=== PATIENT | female | born 1955 | race Caucasian/White ===

== ENCOUNTER 2018-05-27 07:30 | Inpatient (IN) ==
[~2018-05-27 07:30] MED LIST: ACETAMINOPHEN 500 MG TABLET PO ONE; DEXAMETHASONE 4 MG/ML INJECTION IVP ONE; FAMOTIDINE PB 20 MG/50 ML BAG IV ONE; LIDOCAINE 1% (10mg/ml) 2mL INJ PF SDV ID ONE; MELOXICAM 15 MG TABLET PO ONE; METOCLOPRAMIDE 10mg/2ml INJECTION IVP ONE; ONDANSETRON 4 MG/2 ML INJECTION IVP ONE; TRANEXAMIC ACID 1,000 MG in NS 100 ML IV ONE
[2018-05-27] MEDS ORDERED: EPINEPHrine PF 0.25 MG, BUPIVACAINE 0.25% PF 30 ML, KETOROLAC INJ 60 MG in NS 30 ML OPSITE ONE (08:00)
[2018-05-27 10:54] VITALS: BMI 29.0
[2018-05-27] MEDS ORDERED: CEFAZOLIN 1 G INJECTION IVP ONE (10:54)
[2018-05-27] MEDS ORDERED: NS 1,000 ML IV SCH (11:45)
[2018-05-27] MEDS: NOZIN NASAL SWAB NAS SCH ×4 (12:27→22:19)
[2018-05-27] MEDS ORDERED: MIDAZOLAM 2mg/2ml INJECTION ONE (13:59)
[2018-05-27] MEDS ORDERED: PROPOFOL 20 ML ONE (14:00)
[2018-05-27] MEDS ORDERED: LIDOCAINE 2% (100mg/5mL) 5ml PF SDV ONE (14:04)
[2018-05-27] MEDS ORDERED: BUPIVACAINE 0.75%/DEXTROSE 8.5% SPINAL 2 ML AMPULE IJ ONE (14:04)
[2018-05-27] MEDS: LR 1,000 ML IV SCH ×2 (14:09→16:57)
[2018-05-27] MEDS ORDERED: VANCOMYCIN 1,000 MG INJECTION ONE (15:12)
--- NOTE | 2018-05-27 15:16 | Anesthesia Preoperative Report ---
Anesthesia Preoperative Record - Date and Time Date: 05/27/18 Preoperative Diagnosis: primary arthritis right knee NPO Since Date: 05/26/18 NPO Since Time: 23:00 Allergies/Adverse Reactions: Allergies Allergy/AdvReac Type Severity Reaction Status Date / Time DUST, MOLD, POLLEN Allergy Unknown Uncoded 05/27/18 10:52 NKDA Allergy Uncoded 05/27/18 10:52 - Vital Signs Vital Signs: Temperature 98.5 F 05/27/18 10:53 Pulse Rate 81 05/27/18 10:59 Respiratory Rate 18 05/27/18 10:53 Blood Pressure 137/77 05/27/18 10:53 Pulse Oximetry 97 05/27/18 10:53 Height and Weight: Height 5 ft 3 in Weight 74.4 kg Body Mass Index 29.0 - Medications Inpatient Medications: Current Medications Epinephrine HCl 0.25 mg/Bupivacaine HCl 30 ml/Ketorolac Tromethamine 60 mg/ Sodium Chloride 62.25 mls @ 1 mls/hr OPSITE INTRAOP ONE; Protocol Stop: 05/29/18 22:14 Sodium Chloride (Normal Saline) 1,000 mls @ 50 mls/hr IV .Q20H [facility] Last Admin: 05/27/18 10:55 Dose: 50 mls/hr Lactated Ringer's (Lactated Ringers) 1,000 mls @ 50 mls/hr IV .Q20H [facility] Last Admin: 05/27/18 14:09 Dose: 50 mls/hr Isopropyl Alcohol (Nozin Nasal Swab) 1 each JUSTIN Q1M [facility] Stop: 05/27/18 16:03 Last Admin: 05/27/18 12:31 Dose: 1 each Sodium Chloride (Iv Flush) 10 - 80 ml IV PRN PRN PRN Reason: Flushing Home Medications: Home Medications Medication Instructions Recorded Confirmed Type Estrogens, Conjugated [Premarin] 1 tab PO DAILY #0 11/04/15 05/27/18 History Fluoxetine HCl [Prozac] 1 cap PO DAILY #0 11/04/15 05/27/18 History Aspirin 1 tab PO DAILY 05/21/18 05/21/18 History Cholecalciferol (Vitamin D3) 400 unit PO DAILY 05/21/18 05/27/18 History [Vitamin D3] Irbesartan 75 mg PO DAILY 05/21/18 05/27/18 History Lovastatin [Altoprev] 20 mg PO HS 05/21/18 05/27/18 History Calcium Carbonate [Calcium] 1 tab PO DAILY 05/27/18 05/27/18 History Is Patient on Beta Herberth?: No - Medical History Respiratory: Reports: Chronic Obstructive Pulmonary Disease (COPD) DENIES: Sleep Apnea Cardiovascular: Reports: Hypertension Neuro/Musculoskeletal: Reports: Depression Other History: Reports: Other (exc of cyst off neck) - Surgical History HEENT Surgeries: Reports: Ear Surgery (Rt tymnpano mastoidectectomy) GI Surgery/Treatments: Reports: Colonoscopy Musculoskeletal Surgery/Tx: Reports: Knee Arthroscopy (left), Total Knee Replacement (Lt) Reproductive Surgery/Treatment: Reports: Hysterectomy, Oophorectomy, Salpingectomy, Other (exc cyst off rt breast) Anesthesia Reactions: None Hx Family Anesthesia Reaction: No History of Motion Sickness: No - Social History Smoking Status: Current every day smoker Hx Chewing Tobacco Use: No - Pertinent Findings Laboratory: CBC and BMP 05/27/18 10:59 05/27/18 10:59 BMP 05/27/18 10:59 Sodium 145 Potassium 3.9 Chloride 114 H Carbon Dioxide 20 L BUN 21.0 H Creatinine 0.9 Glucose 91 Calcium 9.0 Liver Function 05/27/18 Range/Units 10:59 Total Bilirubin 0.40 (0.20-1.30) MG/DL AST 19 (14-36) U/L ALT 20 (1-35) U/L Alkaline Phosphatase 98 (38-126) U/L Albumin 4.3 (3.5-5.0) g/dL EKG: Sinus Rhythm - Physical Exam Respiratory Exam: Present: lungs clear, bilateral breath sounds equal Cardiovascular Exam: Present: regular rate and rhythm - Airway Assessment Mallampati Score: II TMD: 3 Fingerbreadths Neck Extension: good Overall Assessment: no airway concerns - ASA ASA Score: 2 - Plan Anesthesia: Neuroaxial Regional/Trunk Block: Spinal - Discussion Discussion: Discussed risks/options/alternatives of anesthesia and questions answered. Patient consents. Nursing pain assessment noted. Present for Discussion: spouse Attestation Statement: Prior to the delivery of any anesthetic medication, I examined the patient, developed the plan, obtained the patient's consent and discussed the risk and benefits of the procedure with the patient/guardian. - Additional Information Seen by Anesthesia: Yes
--- NOTE | 2018-05-27 15:31 | Operative Note ---
- Procedure Preoperative Diagnosis: Right knee primary degenerative joint disease Postoperative Diagnosis: Same as preoperative diagnosis. Surgeon: Nahum Link MD Business Office Specialist: Rory Kendall Complications: None. Anesthesia: Spinal. Estimated Blood Loss: See Anesthesia Record. Fluids: Please see Anesthesia Record. Description of Procedure: Mrs. Francis and her right knee were identified and marked in the preoperative holding area. She was brought back to the operating suite. Spinal anesthetic was administered and she was placed supine on the operating table. The right lower extremity was prepped and draped in my normal sterile fashion. Timeout was performed. The [employer] robotic arm was used during the surgery. She had a fixed varus deformity with a 9 flexion contracture. The vast majority of her arthritis was in the medial compartment although she did have some changes in the patellofemoral compartment as well. A standard anterior midline incision followed by medial parapatellar arthrotomy was performed. Anterior fat pad and meniscus were removed. The patella was everted and a patellar osteotomy was performed leaving 12 mm of bone. Tibial and femoral arrays and checkpoints were placed both within the original incision. The bone was then registered with the [employer] robot. Osteophytes were removed and gaps were captured both 90 and 0 with correction. And he has balanced by placing the tibial component in 2 of varus. The femoral component was placed and 1 of external rotation. The [employer] robotic arm was then used to assist with the bone cuts. Posterior osteophytes and remaining meniscus were removed. Trial components were placed. We used a 3 femur and a 4 tibia with a 9 mm spacer and a 32 patella. She tracked well and was well balanced throughout range of motion. The tibia was stamped at the proper rotation. Trial components fit well and bone quality was adequate so we proceeded with press-fit components. Components were press-fit into place. A final spacer was also placed. The knee was ranged one more time to ensure good stability, balance and patellar tracking. 1 g of vancomycin powder was then placed into the knee joint. The capsulotomy was then closed with #1 Vicryl. I then left my reference assistant to close the subcutaneous tissue with 2-0 Vicryl and a running 0 V-lock. Running 4-0 Monocryl will be used in the subcuticular layer. After drapes are removed patient will be taken to recovery room under the care of anesthesia.
[2018-05-27] MEDS ORDERED: ROPIVACAINE 0.5% (5mg/ml) 30ml INJ ONE (15:50)
[2018-05-27] MEDS ORDERED: SALINE FLUSH 10ml SYRINGE IV PRN (15:58)
--- NOTE | 2018-05-27 16:27 | XRay Report ---
Indication: postoperative image PROCEDURE: XR knee RT 2V: Encounter: Initial Comparison: April 21, 2018 Findings: Postoperative changes of right total knee replacement are seen. There is expected postoperative subcutaneous gas. No evidence of hardware failure or acute fracture. No retained radiopaque surgical instruments or sponges. Overlying material causing artifact. Impression: New right total knee prosthesis without evidence of immediate complication. .
[2018-05-27] MEDS ORDERED: NOZIN NASAL SWAB NAS ONE (16:41)
[2018-05-27] MEDS ORDERED: ONDANSETRON 4 MG/2 ML INJECTION IVP PRN (16:41)
[2018-05-27] MEDS ORDERED: DiphenhydrAMINE 50 MG/ML INJECTION IVP PRN (16:41)
[2018-05-27] MEDS ORDERED: DiphenhydrAMINE 25 MG CAPSULE PO PRN (16:41)
[2018-05-27] MEDS ORDERED: DEXAMETHASONE 20 MG/5 ML INJECTION IVP ONE (16:41)
[2018-05-27] MEDS ORDERED: LORazepam 1 MG TABLET PO PRN (16:41)
[2018-05-27] MEDS: NS 1,000 ML IV SCH (16:45)
[2018-05-27] MEDS: NAPROXEN 220 MG TABLET PO SCH (17:33)
[2018-05-27] MEDS: ACETAMINOPHEN 325 MG TABLET PO SCH ×2 (17:33→20:54)
[2018-05-27] MEDS: Oxycodone *IR* 5 MG TABLET PO PRN ×2 (18:21→22:19)
[2018-05-27] MEDS: ASPIRIN *EC* 81 MG TABLET PO SCH (20:55)
[2018-05-27] MEDS: DOCUSATE SODIUM 100 MG CAPSULE PO SCH (20:55)
[2018-05-27] MEDS ORDERED: LOVASTATIN 20 MG PO SCH (21:00)
[2018-05-27] MEDS ORDERED: SENNOSIDES 8.6 MG TABLET PO SCH (21:00)
[2018-05-27] MEDS ORDERED: LOVASTATIN 20 MG TABLET PO SCH (21:00)
[2018-05-27] MEDS: CEFAZOLIN 1 G in NS 100 ML IV SCH (22:19)
[2018-05-28] MEDS: Oxycodone *IR* 5 MG TABLET PO PRN ×2 (02:30→09:53)
[2018-05-28] MEDS: NS 1,000 ML IV SCH (06:07)
[2018-05-28] MEDS: CEFAZOLIN 1 G in NS 100 ML IV SCH (06:07)
[2018-05-28] MEDS: NOZIN NASAL SWAB NAS SCH ×2 (06:08→13:01)
--- NOTE | 2018-05-28 08:07 | Orthopedic Progress Note ---
Date: Date: 05/28/18 Time: 802 Subjective/Severity of Illness: Tricia is doing well. Pain is minimal and well controlled with PO meds. No CP, cough or SOA. She is doing okay without smoking. Appetite is good and she is taking in plenty of fluids. VS are stable. Creat is up 0.2 from admission. Dressing is dry. Orthopedic Exam Vital signs: Temperature 96.3 F L 05/28/18 04:00 Pulse Rate 86 05/28/18 04:00 Respiratory Rate 16 05/28/18 04:06 Blood Pressure 136/74 05/28/18 04:00 Pulse Oximetry 91 05/28/18 04:55 - Constitutional General Appearance: Present: alert, orientated x3, cooperative, no acute distress - Respiratory Exam Present: non-labored - Cardiovascular Exam Present: pedal pulses intact - Extremities Exam Present: pulses intact. Absent: calf tenderness - Integumentary Exam Present: pink, warm, dry - Neurological Exam Present: intact to light touch, no deficits - Psychiatric Exam Present: alert, normal affect - Labs Result Diagrams: 05/28/18 04:43 05/28/18 04:43 Abnormal lab results 05/27/18 05/27/18 05/28/18 Range/Units 10:59 10:59 04:43 Hgb 11.8 L D (12-16) GM/DL [place] % (Auto) 9.9 H (0-9.0) % Chloride 114 H (98-107) MEQ/L Carbon Dioxide 20 L (22-30) MEQ/L BUN 21.0 H (7-17) MG/DL Glucose (65-110) MG/DL Calculated Osmolality 282 H (261-280) MOSM/KG Calcium (8.4-10.2) MG/DL Globulin 3.8 H (2.4-3.6) G/DL 05/28/18 Range/Units 04:43 Hgb (12-16) GM/DL [place] % (Auto) (0-9.0) % Chloride 116 H (98-107) MEQ/L Carbon Dioxide 18 L (22-30) MEQ/L BUN 23.0 H (7-17) MG/DL Glucose 165 H (65-110) MG/DL Calculated Osmolality 283 H (261-280) MOSM/KG Calcium 8.1 L D (8.4-10.2) MG/DL Globulin (2.4-3.6) G/DL H & H 05/27/18 05/28/18 Range/Units 10:59 04:43 Hgb 14.1 11.8 L D (12-16) GM/DL Hct 42.3 (36-46) % Orthopedic Assessment and Plan (1) Primary osteoarthritis of right knee Status: Acute Assessment and Plan: Aspirin protocol for VTE prophylaxis. SCD's for added DVT coverage. Encourage PO fluids. D/C nsaids except aspirin. PT/OT services to improve independent function. Discharge Planning per Case Management. - Anticoagulation Therapy Anticoagulation: ASA 81 mg PO BID x6 weeks Hospital Course Summary Disclaimer: The visit summary below is not to be considered part of the above Progress Note.
[2018-05-28] MEDS: ACETAMINOPHEN 325 MG TABLET PO SCH ×2 (08:13→13:01)
[2018-05-28] MEDS: ASPIRIN *EC* 81 MG TABLET PO SCH (08:13)
[2018-05-28] MEDS: DOCUSATE SODIUM 100 MG CAPSULE PO SCH (08:13)
[2018-05-28] MEDS ORDERED: NICOTINE 14 MG PATCH TD PRN (08:40)
[2018-05-28] MEDS ORDERED: NICOTINE PATCH REMOVAL TD PRN (08:47)
[2018-05-28] MEDS ORDERED: IRBESARTAN 75 MG PO SCH (09:00)
[2018-05-28] MEDS ORDERED: POLYETHYL GLYCOL 3350 17gm PACKET PO SCH (09:00)
[2018-05-28] MEDS ORDERED: FLUoxetine 20 MG CAPSULE PO SCH (09:00)
[2018-05-28] MEDS ORDERED: IRBESARTAN 150 MG TABLET PO SCH (09:00)
[2018-05-28] MEDS: NAPROXEN 220 MG TABLET PO SCH (09:09)
[2018-05-28 11:53] VITALS: BP 145/71; PULSE 90; RESP 18; TEMP 97.1; O2SAT 97
--- NOTE | 2018-05-28 12:53 | Discharge Summary ---
Orthopedic Discharge Info Date of admission: 05/27/18 10:29 Anticipated date of discharge: 05/28/18 Primary care physician: Vance Valiente MD Attending Physician: Armen Link MD Consults: 05/27/18 10:47 Consult to Anesthesiology [CONS] Routine Reason For Exam: Preoperative Assessment 05/27/18 16:41 Case Management Consult [CONS] Routine Reason For Exam: Discharge Planning DME-Walker [CONS] Routine Height: 5 ft 3 in Weight: 74.4 kg Total Joint Outpatient Therapy [CONS] Routine Comment: Remove dressing in 2 weeks - Discharge Diagnosis (1) Primary osteoarthritis of right knee Status: Acute - Procedures Procedures: Procedures Replacement of Left Knee Joint with Synthetic Substitute, Cemented, Open Approach (11/10/15) Rt TKA 05/27/18 - Laboratory Result Diagrams: 05/28/18 04:43 05/28/18 04:43 Laboratory: Abnormal lab results 05/28/18 05/28/18 Range/Units 04:43 04:43 Hgb 11.8 L D (12-16) GM/DL Chloride 116 H (98-107) MEQ/L Carbon Dioxide 18 L (22-30) MEQ/L BUN 23.0 H (7-17) MG/DL Glucose 165 H (65-110) MG/DL Calculated Osmolality 283 H (261-280) MOSM/KG Calcium 8.1 L D (8.4-10.2) MG/DL H & H 05/27/18 05/28/18 Range/Units 10:59 04:43 Hgb 14.1 11.8 L D (12-16) GM/DL Hct 42.3 (36-46) % Orthopedic Discharge HPI - HPI Comments This patient was admitted for elective surgical tx of end stage degenerative joint disease that failed to respond to conservative treatment. Further details of this is found in the admission H&P. Orthopedic Hospital Course Hospital course: 05/28/18 12:51 After appropriate preoperative clearance and signing of operative consent, the patient was given IV antibiotics, according to orthopedic protocol. The patient was taken to the operating room and underwent elective right total knee arthroplasty on 05/27/18. Following surgery, antibiotics were discontinued less than 24 hours according to joint protocol. Aspirin was initiated and SCDs added for DVT prevention. The dressing was clean, dry, and intact. Pain control was obtained via multimodal approach. Bowel motivation addressed with scheduled and PRN medications. Early mobilization was initiated through PT services. Discharge arrangements made by a collaborative effort between the patient and Case Management. She had a mild increase in her Creat from 0.9 to 1.1 after surgery. All nsaids were held and fluids were encouraged. Her electrolytes were normal. VS are stable and BPs were never hypotensive after surgery. Her Hgb is 11.8 at discharge. Dressing is dry and she is mobile with PT. She was strongly encourage not to smoke and was informed of increased risk of infection and wound healing complications. Follow-up is scheduled in 2-3 weeks. Discharge instructions given by orthopedic providers and nursing staff at discharge. Discharge condition was good. 05/28/18 12:53 Care extended to > 2 midnight stays?: No Discharge Plan - Med Rec/Dispo Referrals/Follow Up: Vance Valiente MD [Primary Care Provider] - 06/04/18 2:45 pm Rory Kendall PA [Physician Technical Aide] - 06/16/18 10:15 am [place] Instructions: [facility] Postop Instructions Prescriptions: New Acetaminophen [Tylenol] 650 mg PO QID tablet Aspirin *EC* [Ecotrin] 81 mg PO BID tablet Milk of Magnesia [Mom] 30 ml PO DAILY udc Oxycodone *IR* [Roxicodone *Ir*] 5 - 10 mg PO Q4H PRN #50 tablet PRN Reason: Breakthrough Pain PEG 3350 17gm PACKET [Miralax] 17 gm PO DAILY packet Continue Fluoxetine HCl [Prozac] 1 cap PO DAILY #0 Cholecalciferol (Vitamin D3) [Vitamin D3] 400 unit PO DAILY Irbesartan 75 mg PO DAILY Estrogens, Conjugated [Premarin] 1 tab PO DAILY #0 Lovastatin [Altoprev] 20 mg PO HS Calcium Carbonate [Calcium] 1 tab PO DAILY Discontinued Aspirin 1 tab PO DAILY - Disposition 01 Discharged Home, Self-Care - Dismissal Complete Discharge Instructions are:: Complete
[2018-05-28] MEDS ORDERED: SENNOSIDES 8.6 MG TABLET PO PRN (15:55)
[2018-05-29] MEDS ORDERED: BISACODYL 10 MG SUPPOSITORY RECTALLY SCH (20:00)
== END 2018-05-28 14:07 | disposition home or self-care (01) | DRG 470 ==
LOC: NMC.PERIOP 10:29 → SRG 16:30
PROVIDERS: ADMIT Orthopaedic Surgery; ATTEND Orthopaedic Surgery